=== PATIENT | male | born 1955 | race Two or more races ===

== ENCOUNTER 2019-05-07 14:48 | Inpatient (IN) | payer OTHER ==
[~2019-05-07] VITALS: Ht 152.4 cm; Wt 72.6 kg
[2019-06-01] MEDS ORDERED: ALPHAGAN P5 M2 OTIC (07:49)
[2019-06-01] MEDS ORDERED: COSOPT PF EYE1 EACH OP (07:50)
[2019-06-01] MEDS ORDERED: PROTONIX40 M1 PO (07:50)
[2019-06-01] MEDS ORDERED: ALBUTEROL0.63 MG/3 IH (07:51)
[2019-06-12] MEDS ORDERED: NeurRONTin 100mg cap PO (11:15)
[2019-06-12] MEDS ORDERED: NORFLEX100MG PO (11:15)
[2019-06-12] MEDS ORDERED: XARELTO10 MG PO (11:16)
[2019-06-12] MEDS ORDERED: OXYC1TAB9 PO (11:16)
== END 2019-06-12 13:28 | DRG 470 ==
LOC: SURG 06-01 07:15 → O/R 06-09 08:14 → SURG 06-09 08:14
PROVIDERS: ADMIT Orthopaedic Surgery
PROC: 0SRC0J9 Replacement of Right Knee Joint with Synthetic Substitute, Cemented, Open Approach (ICD-10-PCS; principal; 2019-06-09 12:30)
DX: M17.11 Unilateral primary osteoarthritis, right knee (principal); D62 Acute posthemorrhagic anemia; J45.41 Moderate persistent asthma with (acute) exacerbation; M85.661 Other cyst of bone, right lower leg; I10 Essential (primary) hypertension; K21.9 Gastro-esophageal reflux disease without esophagitis